=== PATIENT | male | born 1985 | race Caucasian/White ===

== ENCOUNTER 2017-05-11 07:18 | Emergency (ER) | payer BC ==
[2017-05-11 07:33] VITALS: BP 135/91
[2017-05-11] MEDS ORDERED: Ibuprofen TAB* 600 MG PO ONE (08:15)
--- NOTE | 2017-05-11 08:15 | UC ---
Respiratory Complaint HPI - HPI Summary HPI Summary: Per director economic "saw PCP on , diagnosed with bronchitis. States facial sinuses with increased pain and pressure." He was given advair, prednisone and albuterol and that is much better. has long h/o sinus infections and sx are consistent. b/l teeth hurt and has LEDESMA. - History of Current Complaint Chief Complaint: UCRespiratory Stated Complaint: SINUS Time Seen by Provider: 05/11/17 07:41 - Allergies/Home Medications Allergies/Adverse Reactions: Allergies Allergy/AdvReac Type Severity Reaction Status Date / Time No Known Allergies Allergy Verified 05/11/17 07:26 Home Medications: Home Medications Dextromethorphan-Phenylephrine [Day Time Multi-Symptom Co 10-5-325 mg] 2 cap PO DAILY PRN 05/11/17 [History Confirmed 05/11/17] Fluticasone-Salmeterol 250-50* [Advair Diskus 250-50*] 2 puff INH BID 05/11/17 [ History Confirmed 05/11/17] predniSONE TAB* [Deltasone TAB*] 10 mg PO DAILY 05/11/17 [History Confirmed 08/23] PMH/Surg Hx/FS Hx/Imm Hx Previously Healthy: Yes - Surgical History Surgical History: Yes Surgery Procedure, Year, and Place: RIGHT KNEE SX. RIGHT WRIST SX - Family History Known Family History: Positive: Hypertension - Social History Alcohol Use: Occasionally Substance Use Type: None Smoking Status (MU): Never Smoked Tobacco Review of Systems Constitutional: Fatigue Skin: Negative Eyes: Negative ENT: Negative, Sinus Congestion, Sinus Pain/Tenderness Respiratory: Cough Cardiovascular: Negative Gastrointestinal: Negative Genitourinary: Negative Motor: Negative Neurovascular: Negative Musculoskeletal: Negative Neurological: Negative Psychological: Negative Is Patient Immunocompromised?: No All Other Systems Reviewed And Are Negative: Yes Physical Exam Triage Information Reviewed: Yes Appearance: Ill-Appearing - moderate. sitting w/ lights off in room. very pleasant Vital Signs: Initial Vital Signs Temp 98.1 F 05/11/17 07:29 Pulse 78 05/11/17 07:29 Resp 16 05/11/17 07:29 BP 135/91 05/11/17 07:29 Pulse Ox 98 05/11/17 07:29 Vital Signs Reviewed: Yes Eye Exam: Normal ENT: Positive: Pharynx normal, TMs normal, Dental tenderness, Sinus tenderness - b/l maxillary tenderness. Negative: Nasal drainage Dental Exam: Normal Neck exam: Normal Neck: Positive: Supple, Nontender, No Lymphadenopathy Respiratory Exam: Normal Respiratory: Positive: Lungs clear, Normal breath sounds, No respiratory distress, No accessory muscle use, Wheezing - B/L slight right > left Cardiovascular Exam: Normal Cardiovascular: Positive: RRR, No Murmur, Pulses Normal Abdomen Description: Positive: Nontender, Soft Musculoskeletal Exam: Normal Neurological Exam: Normal Psychological Exam: Normal Skin Exam: Normal UC Diagnostic Evaluation - Laboratory O2 Sat by Pulse Oximetry: 98 Respiratory Course/Dx - Differential Dx/Diagnosis Differential Diagnosis/HQI/PQRI: Bronchitis, Sinusitis Provider Diagnoses: Sinusitis Discharge - Discharge Plan Condition: Stable Disposition: HOME Prescriptions: Amoxicillin/Clavulanate TAB* [Augmentin TAB 875*] 875 mg PO BID #20 tab Patient Education Materials: Sinusitis (ED) Referrals: Jaycob Vitale MD [Primary Care Provider] - Additional Instructions: Make sure to take a probiotic daily while on antibiotics to help prevent a potential complication of antibiotic use called c diff. Some well known brands that can be found OTC are [email or web address], [employer] and [employer]. Make sure to complete the entire prescription unless advised otherwise by your health care provider. -continue using the advair, prednisone and inhaler for your lungs.
== END 2017-05-11 08:28 | disposition home or self-care (01) ==
LOC: UCCORT 07:18
DX: J32.9 Chronic sinusitis, unspecified (principal)
CPT/HCPCS: 99212; A9270-GY; G0463

== ENCOUNTER 2022-03-31 06:47 | Inpatient (IN) ==
[2022-03-31 08:14] LABS: Hematocrit 14 % (42-52); Hemoglobin 4.8 g/dL (14.0-18.0); Mean Corpuscular HGB Conc 34 g/dL (31-36); Mean Corpuscular Hemoglobin 33 pg (27-31); Mean Corpuscular Volume 95 fL (80-94); Mean Platelet Volume 6.9 fL (7.4-10.4); Platelet Count 256 10^3/uL (150-450); Red Blood Count 1.46 10^6 /uL (4.18-5.48); Red Cell Distribution Width 14 % (10-15); White Blood Count 6.9 10^3/uL (3.5-10.8)
[2022-03-31 08:33] LABS: INR 1.05 (0.89-1.11)
[2022-03-31 08:34] LABS: Activated Partial Thrombo Time 25.8 seconds (26.0-38.0)
[2022-03-31 08:47] LABS: ABS Lymphocytes 1.2 10^3/ul (1.0-4.8); ABS Monocytes 0.6 10^3/ul (0-0.8); ABS Neutrophils 5.1 10^3/ul (1.5-7.7); Eosinophil % 0.3 %; Lymphocyte % 17.3 %; Nucleated Red Blood Cells % 0.4
[2022-03-31 08:57] LABS: Hematocrit 14 % (42-52); Hemoglobin 4.7 g/dL (14.0-18.0)
[2022-03-31 09:12] LABS: Albumin 3.6 g/dL (3.2-5.2); Albumin/Globulin Ratio 2.3 (1-3); Calcium 8.2 mg/dL (8.6-10.3); Globulin 1.6 g/dL (2-4); Potassium 3.7 mmol/L (3.5-5.0); Total Bilirubin 0.2 mg/dL (0.2-1.0); Total Protein 5.2 g/dL (6.4-8.9)
[2022-03-31] MEDS ORDERED: Pantoprazole VIAL 40 MG VIAL IV ONE (09:34)
[2022-03-31] MEDS ORDERED: Acetaminophen IV 1 GM/100ML 1,000 MG/100 ML BAG IV PRN (10:11)
[2022-03-31] MEDS ORDERED: NS 0.9% 1000 ml BAG 1,000 ML IV SCH (10:15)
[2022-03-31] MEDS: Pantoprazole 80 mg in NS BAG 80 MG/250 ML BAG IV SCH ×2 (10:49→21:32)
[2022-03-31 11:01] LABS: Corrected Retic Count 2.9 % (0.5-1.5); Hematocrit for Retic CNT 13 % (42-52); Immature Retic Fraction 0.79
[2022-03-31 11:39] LABS: Folate 11.83 ng/mL (5.90-24.80)
[2022-03-31 17:32] LABS: Hematocrit 18 % (42-52)
[2022-03-31] MEDS ORDERED: fentaNYL 100 mcg/2 ml 50 MCG/ML VIAL ONE (18:14)
[2022-03-31] MEDS ORDERED: Midazolam 5 mg/5 ml VIAL 1 mg/ml 5 ml VIAL (5 mg) ONE (18:14)
[2022-03-31] MEDS ORDERED: Rocuronium 50 mg VIAL 10 mg/ml 5 ml VIAL (50 mg) ONE (18:20)
[2022-03-31] MEDS ORDERED: Lidocaine 2% PF 5 ML VIAL ONE (18:21)
[2022-03-31] MEDS ORDERED: Succinylcholine 200 mg VIAL 20 mg/ml 10 ml VIAL (200 mg) ONE (18:21)
[2022-03-31] MEDS ORDERED: Propofol 10 MG/ML 20 ML BTL ONE (18:21)
[2022-03-31] MEDS ORDERED: Sugammadex 500 MG/5 ML 5 ml VIAL IV PUSH ONE (19:46)
[2022-03-31] MEDS ORDERED: Ondansetron 4 mg VIAL 2 MG/ML 2 ml VIAL ONE (20:04)
[2022-03-31] MEDS ORDERED: Naloxone 0.4 mg VIAL 0.4 mg/ml 1 ml VIAL IV PRN (20:10)
[2022-03-31 23:58] LABS: Hematocrit 20 % (42-52); Hemoglobin 6.7 g/dL (14.0-18.0)
[2022-04-01 01:38] LABS: Hematocrit 20 % (42-52); Hemoglobin 6.5 g/dL (14.0-18.0)
[2022-04-01 06:47] LABS: ABS Lymphocytes 0.9 10^3/ul (1.0-4.8); ABS Monocytes 0.5 10^3/ul (0-0.8); ABS Neutrophils 4.3 10^3/ul (1.5-7.7); Eosinophil % 0.6 %; Hematocrit 21 % (42-52); Hemoglobin 7.3 g/dL (14.0-18.0); Lymphocyte % 16.5 %; Mean Corpuscular HGB Conc 35 g/dL (31-36); Mean Corpuscular Hemoglobin 31 pg (27-31); Mean Corpuscular Volume 89 fL (80-94); Mean Platelet Volume 7.1 fL (7.4-10.4); Nucleated Red Blood Cells % 0.2; Platelet Count 191 10^3/uL (150-450); Red Blood Count 2.36 10^6 /uL (4.18-5.48); Red Cell Distribution Width 16 % (10-15); White Blood Count 5.7 10^3/uL (3.5-10.8)
[2022-04-01] MEDS: Pantoprazole 80 mg in NS BAG 80 MG/250 ML BAG IV SCH ×2 (09:16→21:00)
[2022-04-01 16:58] LABS: Hematocrit 26 % (42-52); Hemoglobin 8.7 g/dL (14.0-18.0)
[2022-04-02 06:17] LABS: Hematocrit 24 % (42-52); Hemoglobin 7.9 g/dL (14.0-18.0)
[2022-04-02] MEDS: Pantoprazole 80 mg in NS BAG 80 MG/250 ML BAG IV SCH (07:36)
[2022-04-02 11:28] VITALS: BP 101/57
[2022-04-02 12:07] LABS: Potassium 3.5 mmol/L (3.5-5.0); eGFR CKD-EPI 96.5 (>60)
[2022-04-02 12:17] LABS: Hematocrit 25 % (42-52); Hemoglobin 8.3 g/dL (14.0-18.0)
== END 2022-04-02 14:35 | disposition home or self-care (01) | DRG 241 ==
LOC: ED 06:47 → SUATTDRO 10:09 → EDHOLD 10:09 → MED 10:09 → UNDODISIN 19:10 → MED 19:20 → AA 19:44 → MED 20:22
PROVIDERS: ADMIT Student in an Organized Health Care Education/Training Program; ATTEND Internal Medicine
PROC: O.GIEGD (2022-03-31 19:10)